=== PATIENT | male | born 1975 | race Caucasian/White ===

== ENCOUNTER 2018-02-07 17:03 | Emergency (ER) | payer OTHER ==
--- NOTE | 2018-02-07 17:20 | PDOC ---
Rapid Medical Evaluation Chief Complaint: Ear Problem Time Seen by Provider: 02/07/18 17:18 Medical Evaluation: Allergies Allergy/AdvReac Type Severity Reaction Status Date / Time No Known Allergies Allergy Verified 02/07/18 17:18 I have performed a brief in-person evaluation of this patient. The patient presents with a chief complaint of: was diagnosed with ear infection last night. Is on antibiotics. Was cleaning left ear with q-tip last night and the tip of the q-tip got stuck in his ear Pertinent physical exam findings: nothing I have ordered the following: nothing The patient will proceed to the ED for further evaluation. Discharge Disposition - Diagnosis Foreign body in ear - Referrals - Patient Instructions - Post Discharge Activity
[2018-02-07 17:21] VITALS: BP 113/68; PULSE 74; TEMP 98; BMI 30.1
--- NOTE | 2018-02-07 18:17 | PDOC ---
History of Present Illness - General Chief Complaint: Foreign Body (FB) Stated Complaint: EAR PAIN Time Seen by Provider: 02/07/18 17:18 - History of Present Illness Initial Comments: 42-year-old male presents for evaluation after being treated for otitis media and otitis externa for left ear pain. He states he was cleaning his ear out last night and the tip of the Q-tip was lodged in his ear. He states his took out a small piece of it but he feels is still in there. 02/07/18 18:14 Past History - Past Medical History Allergies/Adverse Reactions: Allergies Allergy/AdvReac Type Severity Reaction Status Date / Time No Known Allergies Allergy Verified 02/07/18 17:18 Home Medications: Ambulatory Orders Amoxicillin - [Amoxicillin 500mg Capsule -] 500 mg PO BID #14 capsule 02/05/18 Neomycin/Polymyxn/Hc [Cortisporin Otic Suspenstion -] 5 drop OS Q4HWA #1 bottle 02/06/18 COPD: No Hypercholesterolemia: Yes Kidney Stones: Yes - Suicide/Smoking/Psychosocial Hx Smoking Status: No Smoking History: Never smoked Have you smoked in the past 12 months: No Number of Cigarettes Smoked Daily: 0 Information on smoking cessation initiated: No Hx Alcohol Use: No Drug/Substance Use Hx: No Substance Use Type: None Review of Systems - Review of Systems HEENTM: Yes: Ear Pain All Other Systems: Reviewed and Negative *Physical Exam - Vital Signs Last Vital Signs Temp Pulse Resp BP Pulse Ox 98.0 F 74 18 113/68 100 02/07/18 17:19 02/07/18 17:19 02/07/18 17:19 02/07/18 17:19 02/07/18 17:19 - Physical Exam Comments: The right ear canal is patent with normal tympanic membrane the left ear canal is swollen with exudate in the canal he requires a pediatric scope to view the tympanic membrane which is mildly erythematous and retracted I do not visualize any foreign body. There is purulence in the canal 02/07/18 18:14 Medical Decision Making - Medical Decision Making I do not see a foreign body that can be removed I will refer him to ENT 02/07/18 18:15 *DC/Admit/Observation/Transfer Diagnosis at time of Disposition: Otitis media, Otitis externa Diagnosis at time of Disposition: (Ruled Out): Foreign body in ear - Discharge Dispostion Disposition: HOME Condition at time of disposition: Stable Decision to Admit order: No - Referrals Referrals: Paul Colindres MD [Primary Care Provider] - Manpreet David MD [Staff Physician] - - Patient Instructions Printed Discharge Instructions: Middle Ear Infection, Otitis Externa, DI for Otitis Externa Additional Instructions: Do not stick anything in your ear take the drops as prescribed as well as the antibiotics. Return to the emergency room should her symptoms worsen or go unresolved. In the meantime it's very important few to follow-up with ear nose and throat doctor tomorrow. I do not see a foreign body in your ear canal that can be removed at this time. - Post Discharge Activity
== END 2018-02-07 18:19 | disposition home or self-care (01) ==
LOC: JERFT 17:03
DX: H66.92 Otitis media, unspecified, left ear (principal); H60.92 Unspecified otitis externa, left ear
CPT/HCPCS: 99281-25

== ENCOUNTER 2018-08-02 18:16 | Emergency (ER) | payer OTHER ==
[2018-08-02 18:37] VITALS: BP 147/106; PULSE 77; TEMP 99; BMI 33.6
--- NOTE | 2018-08-02 18:37 | PDOC ---
Rapid Medical Evaluation Time Seen by Provider: 08/02/18 18:31 Medical Evaluation: 08/02/18 21:41 I have performed a brief in person evaluation of this patient Mr. Amezquita presents with a progressively worsening occipital headache in a band -like pattern. Also w/ incidental high blood pressure. No vision changes, no speech changes, no head trauma, no LOC, no syncope recently. The patient will proceed to the ED for further evaluation. Discharge Disposition - Diagnosis Headache Qualifiers: Headache type: unspecified Headache chronicity pattern: acute headache Intractability: intractable Qualified Code(s): R51 - Headache - Referrals Referrals: Paul Colindres MD [Primary Care Provider] - - Patient Instructions - Post Discharge Activity
[2018-08-02] MEDS ORDERED: diazePAM 2 MG TABLET PO ONE (20:07)
[2018-08-02] MEDS ORDERED: ACETAMINOPHEN 500 MG TABLET (FP) PO ONE (20:07)
[2018-08-02] MEDS ORDERED: IBUPROFEN 600 MG TABLET (FP) PO ONE ×2 (20:07→20:15)
[2018-08-02] MEDS ORDERED: ACETAMINOPHEN 325 MG TABLET (FP) ONE (20:15)
[2018-08-02] MEDS ORDERED: diazePAM 2 MG TABLET ONE (20:15)
--- NOTE | 2018-08-02 22:24 | PDOC ---
History of Present Illness - General Chief Complaint: Headache Stated Complaint: HEADACHE Time Seen by Provider: 08/02/18 18:31 History Source: Patient Exam Limitations: No Limitations - History of Present Illness Initial Comments: 08/02/18 22:22 Pt is a 43yo M with PMH of HLD presenting to ED with complaints of LEHMAN. Past History - Past Medical History Allergies/Adverse Reactions: Allergies Allergy/AdvReac Type Severity Reaction Status Date / Time No Known Allergies Allergy Verified 08/02/18 18:31 Home Medications: Ambulatory Orders Amoxicillin - [Amoxicillin 500mg Capsule -] 500 mg PO BID #14 capsule 02/05/18 Neomycin/Polymyxn/Hc [Cortisporin Otic Suspenstion -] 5 drop OS Q4HWA #1 bottle 02/06/18 Ibuprofen 800 mg PO DAILY #5 tablet 08/02/18 COPD: No Hypercholesterolemia: Yes Kidney Stones: Yes - Suicide/Smoking/Psychosocial Hx Smoking Status: No Smoking History: Never smoked Have you smoked in the past 12 months: No Number of Cigarettes Smoked Daily: 0 Hx Alcohol Use: No Drug/Substance Use Hx: No Substance Use Type: None *Physical Exam - Vital Signs Last Vital Signs Temp Pulse Resp BP Pulse Ox 99.0 F 77 16 147/106 H 98 08/02/18 18:31 08/02/18 18:31 08/02/18 18:31 08/02/18 18:31 08/02/18 18:31 Moderate Sedation - Procedure Monitoring Vital Signs: Procedure Monitoring Vital Signs Temperature 99.0 F 08/02/18 18:31 Pulse Rate 77 08/02/18 18:31 Respiratory Rate 16 08/02/18 18:31 Blood Pressure 147/106 H 08/02/18 18:31 O2 Sat by Pulse Oximetry (%) 98 08/02/18 18:31 ED Treatment Course - Medications Given in the ED: ED Medications Discontinued Medications Generic Name Dose Route Start Last Admin Trade Name Freq PRN Reason Stop Dose Admin Acetaminophen 975 mg 08/02/18 20:07 08/02/18 20:20 Tylenol - PO 08/02/18 20:08 975 mg ONCE ONE Administration Diazepam 2 mg 08/02/18 20:07 08/02/18 20:20 Valium - PO 08/02/18 20:08 2 mg ONCE ONE Administration Ibuprofen 600 mg 08/02/18 20:07 08/02/18 20:19 Motrin - PO 08/02/18 20:08 600 mg ONCE ONE Administration *DC/Admit/Observation/Transfer Diagnosis at time of Disposition: Headache Qualifiers: Headache type: unspecified Headache chronicity pattern: acute headache Intractability: intractable Qualified Code(s): R51 - Headache - Discharge Dispostion Disposition: HOME Condition at time of disposition: Good Decision to Admit order: No - Referrals Referrals: Paul Colindres MD [Primary Care Provider] - Dev Varela DO [Staff Physician] - - Patient Instructions Printed Discharge Instructions: DI for Headache Additional Instructions: You were seen here today for headache. You most likely have a tension headache. You have been prescribed ibuprofen 800mg. You can take it daily for headache as needed. You can also take Tylenol as needed for headache. I highly recommend you see your primary care doctor in the next few days for further evaluation and management of headaches. You can also see a neurologist: Dr. Varela Come back to the emergency room if headaches get worse, you start having numbness/tingling in your face, you have sensitivity to light or noise, you are unable to move your neck, you develop fever, you start to pass out or if any new concerning symptom develops. Thank you - Post Discharge Activity
--- NOTE | 2018-08-02 23:07 | PDOC ---
Attending Attestation - Resident Resident Name: Lorelei Rand - ED Attending Attestation I have performed the following: I have examined & evaluated the patient, The case was reviewed & discussed with the resident, I agree w/resident's findings & plan, Exceptions are as noted - Physicial Exam PE: 08/02/18 23:06 NAD, well appearing ambulating around ER w/ steady gait no warmth/erythmea to area of "swelling", no "swelling" appreciated on attending examination RRR CTABL soft NTND A&O x 3. - Medical Decision Making 08/02/18 23:07 43yoM w/ tension headache, likely w/ trigger point base of skull. - pain control - DC. <Lavonne Hernández - Last Filed: 08/02/18 23:06> - HPI HPI: 08/02/18 23:07 The patient is a 43 year old male with no past medical history here today for evaluation of a headache. The patient reports that his headache began 5 days ago , is localized to the back of his head, and describes the pain as a pressure. The patient reports that he took ibuprofen which made the pain go away but his headache returned. He notes that the back left of his head feels swollen, that his legs feel numb, and burning in the bottom of his feet. Patient denies head numbness, vision changes, lightheadedness. Denies fever, chills. Denies chest pain, shortness of breath. Denies nausea, vomiting, diarrhea, abdominal pain. Allergies: NKA PCP: Paul Colindres <Tremayne Engle - Last Filed: 08/02/18 23:08>
== END 2018-08-02 23:16 | disposition home or self-care (01) ==
LOC: JER 18:16
DX: R51 Headache (principal); E78.00 Pure hypercholesterolemia, unspecified; Z87.442 Personal history of urinary calculi
CPT/HCPCS: 99281-25

== ENCOUNTER 2021-07-08 17:23 | Emergency (ER) | payer OTHER ==
[2021-07-08 17:52] VITALS: TEMP 97.9; BMI 33.3
[2021-07-08] MEDS ORDERED: FLUORESCEIN NA 1 EA STRIP OD ONE ×2 (18:50→19:30)
[2021-07-08] MEDS ORDERED: FLUORESCEIN NA 1 EA STRIP ONE (18:52)
[2021-07-08] MEDS ORDERED: diphenhydrAMINE HCL 50 MG CAPSULE PO ONE (20:06)
[2021-07-08] MEDS ORDERED: diphenhydrAMINE HCL 25 MG CAPSULE (FP) PO ONE (20:14)
[2021-07-08 20:35] VITALS: BP 134/104; PULSE 75
== END 2021-07-08 20:34 | disposition home or self-care (01) ==
LOC: JER 17:23
DX: H11.421 Conjunctival edema, right eye (principal); T78.40XA Allergy, unspecified, initial encounter
CPT/HCPCS: 99283-25

== ENCOUNTER 2023-02-10 23:33 | Emergency (ER) | payer OTHER ==
[2023-02-10 23:45] VITALS: BP 134/93; PULSE 71; RESP 18; TEMP 98.4; BMI 37.4
[2023-02-11] MEDS ORDERED: ACETAMINOPHEN 325 MG TABLET (FP) PO ONE (00:25)
[2023-02-11] MEDS ORDERED: ACETAMINOPHEN 325 MG TABLET (FP) ONE (00:35)
[2023-02-11 01:19] LABS: POTASSIUM 5.2 mmol/L (3.5-5.1)
[2023-02-11 01:21] LABS: CALCIUM 8.9 mg/dL (8.5-10.1)
[2023-02-11 01:22] LABS: ALBUMIN 3.6 g/dl (3.4-5.0); BLOOD UREA NITROGEN 16.4 mg/dL (7-18)
[2023-02-11 01:25] LABS: CREATININE 1.2 mg/dL (0.55-1.3)
[2023-02-11 01:26] LABS: TOT PROT 7.6 g/dl (6.4-8.2)
[2023-02-11 01:27] LABS: BILIRUBIN,TOTAL 0.5 mg/dL (0.2-1)
[2023-02-11 02:21] LABS: EOS % 9.4 % (0-4.5); HEMOGLOBIN 15.3 GM/dL (11.7-16.9); LYMPH % 35.9 % (8-40); MCH 27.9 pg (25.7-33.7); MEAN CELL VOLUME 82.1 fl (80-96); MEAN PLT VOLUME 9.4 fl (7.5-11.1); MONO % 12.1 % (3.8-10.2); NEUT % 41.6 % (42.8-82.8); PLATELET COUNT 201 10^3/uL (134-434); RBC 5.49 M/mm3 (4.00-5.60); RDW 13.7 % (11.9-15.9)
[2023-02-11 02:48] LABS: MAGNESIUM 2.2 mg/dL (1.8-2.4)
[2023-02-13 10:23] LABS: CALCIUM 8.9 mg/dL (8.5-10.1)
[2023-02-13 10:24] LABS: BLOOD UREA NITROGEN 17.2 mg/dL (7-18)
[2023-02-13 10:27] LABS: CREATININE 1.1 mg/dL (0.55-1.3)
== END 2023-02-11 03:22 | disposition admitted as inpatient to this hospital (09) ==
LOC: JER 23:33
DX: R07.9 Chest pain, unspecified (principal); R42 Dizziness and giddiness; M79.602 Pain in left arm
CPT/HCPCS: 36415; 71045-TC-FY; 80048; 80053; 83735; 84443; 84484; 85025; 93005; 93010; 99285-25